=== PATIENT | male | born 1950 | race Caucasian/White ===

== ENCOUNTER → 2018-04-04 09:23 | Outpatient (CLI) | payer MEDICARE, OTHER, SELFPAY ==
[2018-04-04 12:30] LABS: Cholesterol 175 mg/dL (140-199); HDL Cholesterol 52 mg/dL (40-60); LDL Cholesterol Calculated 107 mg/dL (<100); Triglycerides 80 mg/dL (35-150)
== END ==
PROVIDERS: Visit Provider Physician Assistant
DX: E78.2 Mixed hyperlipidemia (principal)
CPT/HCPCS: 36415; 80061

== ENCOUNTER → 2019-02-25 11:27 | Outpatient (CLI) | payer MEDICARE, OTHER, SELFPAY ==
--- NOTE | 2019-02-25 | DI.RAD.S_ITS ---
PROCEDURE: XR LUMBAR SPINE 2-3V INDICATIONS: Low back pain TECHNIQUE: 3 views of the lumbar spine were acquired. COMPARISON: None. FINDINGS: Bones: 5 [id number] vertebrae are present. There is normal bony alignment. No vertebral body compression fractures. No suspicious bony lesions. There is severe L4-L5 disc degeneration. Severe facet arthropathy at L5-S1. Soft tissues: Overlying bowel gas pattern is normal. No suspicious soft tissue calcifications. IMPRESSION: Severe degenerative disc and facet disease in lumbar spine as described. Dictated by: Nael Mcdaniel M.D. on 02/25/2019 at 17:40 Approved by: Nael Mcdaniel M.D. on 02/25/2019 at 17:41
== END ==
PROVIDERS: PCP Physician Assistant; Visit Provider Physician Assistant
DX: M54.5 Low back pain (principal); M51.36 Other intervertebral disc degeneration, lumbar region; M47.816 Spondylosis without myelopathy or radiculopathy, lumbar region; G47.33 Obstructive sleep apnea (adult) (pediatric); G47.19 Other hypersomnia; Z99.89 Dependence on other enabling machines and devices
CPT/HCPCS: 72100; 99214

== ENCOUNTER → 2019-02-26 08:21 | Outpatient (CLI) | payer MEDICARE, OTHER, SELFPAY ==
[2019-02-26 09:19] LABS: Add Manual Diff / Slide Review NO; Basophils Absolute Auto 0 /uL (0-100); Basophils Percent Auto 0.8 % (0-2); Eosinophils Absolute Auto 200 /uL (0-450); Eosinophils Percent Auto 5.2 % (2-4); Hematocrit 42.4 % (41-53); Hemoglobin 14.7 g/dL (13.5-17.5); Lymphocytes Absolute Auto 1300 /uL (1100-4500); Lymphocytes Percent Auto 29.2 % (25-40); Mean Corpuscular HGB Conc 34.6 % (30-36); Mean Corpuscular Hemoglobin 31.5 PG (26-34); Monocytes Absolute Auto 500 /uL (0-900); Monocytes Percent Auto 10.4 % (3-14); Neutrophils Absolute Auto 2500 /uL (1500-7000); Neutrophils Percent Auto 54.4 % (50-75); Platelet Count 211 X10^3/uL (150-400); Red Blood Cell Count 4.66 X10^6/uL (4.5-5.9); Red Cell Distribution Width 12.7 % (11.6-14.8); White Blood Cell Count 4.6 X10^3/uL (4.5-11.0)
[2019-02-26 09:34] LABS: Hemoglobin A1C% w Est Avg Glu 5.2 % (4.0-6.0)
[2019-02-26 09:36] LABS: Alanine Aminotransferase 16 IU/L (21-72); Albumin 4.1 g/dL (3.5-5.0); Albumin Globulin Ratio 1.4 (1.0-2.8); Alkaline Phosphatase 87 U/L (38-126); Aspartate Aminotransferase 23 IU/L (17-59); BUN Creatinine Ratio 18.2 (6-22); Bilirubin Total 0.9 mg/dL (0.2-1.3); Blood Urea Nitrogen 20 mg/dL (9-20); Calcium 9.3 mg/dL (8.4-10.2); Carbon Dioxide 29 mmol/L (22-32); Chloride 104 mmol/L (98-107); Cholesterol 169 mg/dL (140-199); Estimated Glomerular Filt Rate > 60.0 mL/min (>60); Globulin 2.9 g/dL (1.7-4.1); Glucose 95 mg/dL (80-110); HEMOLYSIS < 15 (0-50); Potassium 4.5 mmol/L (3.4-5.1); Sodium 139 mmol/L (137-145)
[2019-02-26 09:53] LABS: HDL Cholesterol 49 mg/dL (40-60); LDL Cholesterol Calculated 107 mg/dL (<100); Triglycerides 63 mg/dL (35-150)
== END ==
PROVIDERS: PCP Physician Assistant; Visit Provider Physician Assistant
DX: I10 Essential (primary) hypertension (principal); G62.89 Other specified polyneuropathies; E78.2 Mixed hyperlipidemia; Z13.1 Encounter for screening for diabetes mellitus
CPT/HCPCS: 36415; 80053; 80061; 83036; 84153; 85025

== ENCOUNTER → 2019-03-03 08:21 | Outpatient (CLI) | payer MEDICARE, OTHER, SELFPAY ==
[2019-05-30 11:56] LABS: Prostate Specific Antigen 0.645 ng/mL (0.10-4.00)
== END ==
PROVIDERS: PCP Physician Assistant; Visit Provider Urology
DX: R97.20 Elevated prostate specific antigen [PSA] (principal)
CPT/HCPCS: 84153

== ENCOUNTER → 2019-04-08 14:21 | Outpatient (CLI) | payer MEDICARE, OTHER, SELFPAY ==
[2019-04-08 16:20] LABS: Free T4, Direct Thyroxine 0.74 ng/dL (0.78-2.19)
[2019-04-08 16:34] LABS: Thyroid Stimulating Hormone 2.67 uIU/mL (0.47-4.68)
== END ==
PROVIDERS: PCP Physician Assistant; Visit Provider Psychiatry & Neurology Psychiatry
DX: F32.9 Major depressive disorder, single episode, unspecified (principal)
CPT/HCPCS: 36415; 84439; 84443

== ENCOUNTER 2019-06-18 15:15 | Outpatient (RCR) | payer MEDICARE, OTHER, SELFPAY ==
--- NOTE | 2019-05-21 18:37 | PT.OIE ---
Current Diagnoses Dorsalgia, unspecified (05/21/19) Past Medical History (Last Updated 05/19/19 @ 18:01 by ELIJAH Montague) Antidepressant drug adverse reaction (Acute) BPH (benign prostatic hyperplasia) (Acute) CPAP (continuous positive airway pressure) dependence (Acute) Epistaxis (Acute) Excessive daytime sleepiness (Chronic) Obstructive sleep apnea of adult (Chronic) Persistent depressive disorder (Acute) Primary insomnia (Chronic) Restless leg syndrome (Acute) Past Surgical History (Last Updated 05/19/19 @ 18:01 by ELIJAH Montague) H/O eye surgery (Acute) Hx of tonsillectomy (Acute) Visit Care Team Role Provider Type ELIJAH Montague Attending Provider Advanced Marine Surveyor Primary Care Provider Specialty: Family Practice Address: [address] [place] [address], [facility] Email: [email or web address] Physical Therapy Initial Evaluation PT-OP-A Visit Information Start: 05/21/19 17:20 Freq: Status: Active Protocol: Document 05/21/19 16:46 (Rec: 05/21/19 17:31 [email or web address]) Out-Patient Physical Therapy Visit Information Visit Information Visit Type Initial Evaluation Visit Start Time 16:45 Visit Stop Time 17:20 Total Visit Minutes 35 Visit Number 08/24 Number of STEREOPTIC PROJECTION TOPOGRAPHER Visits 0 Evaluation Information Evaluation Date 05/21/19 PT-OP-B Current Condition Start: 05/21/19 17:20 Freq: Status: Active Protocol: Document 05/21/19 16:46 (Rec: 05/21/19 17:31 [email or web address]) Current Condition History of Current Condition Onset Date 05/21/19 Current Complaints R LBP, difficulty in prolonged standing, walking and heavy lifting History of Current Condition Pt is a 68 yo male who presents to clinic with c/o R LBP since 2 months ago. Pt fell down on his R pelvis during a hike who had immediate sharp pain afterwards. Pt then had difficulty moving his trunk and hip. He was taking ibuprofen 300mg 3 to 4 times a day for pain management until last week. Pt's pain has gotten better significantly since injury but it usually gets worse with prolonged standing/ walking (>2 hours) / heavy lifting. It also limits him from doing house work and yard work which requires him to bend over. Treatment Goals Patient/Caregiver Goals 1. To be pain free for standing , walking and lifting Prior Functional Status Baseline Function- ADL's Independent Baseline Function- Mobility Independent Current Functional Impairments (Reported) Functional Limitations- Mobility/Gait pain with walking >2 hours Functional Limitations- Other unable to bend over at counter / gardening due to increased bakc pain. Personal Factors Other Personal Factors That May Effect Pt has depression. Therapy/Recovery PT-OP-C Subjective Start: 05/21/19 17:20 Freq: Status: Active Protocol: Document 05/21/19 16:46 (Rec: 05/21/19 17:31 [email or web address]) OP-PT Subjective Patient Comments Patient Comments My pain is only like 1-2/10 right now. But certain movements/ activities do make it worse. Patient Questionnaires Oswestry Low Back Index Oswestry Score 10 Oswestry Impairment 1 to 19% Impaired (Score 1-19) OP-PT Pain Assessment Location R PSIS Intensity 2 Scale Used Numeric (1 - 10) Description Pinching,Pressure Frequency Occasional Pain Aggravating Factors Position,Exercise,Standing, Walking,Lifting Pain Alleviating Factors Inactivity,Lying Supine PT-OP-J Posture/Palpation/Skin Start: 05/21/19 17:20 Freq: Status: Active Protocol: Document 05/21/19 16:46 (Rec: 05/21/19 17:31 [email or web address]) Posture Evaluation Position Standing Evaluation View Posterior T-Spine Posture Increased Kyphosis Thorax Posture (L) Elevated L-Spine Posture Rotation Left,Shifted Right Shoulder Posture (L) Elevated Weight Distribution Weight Shifted Right PT-OP-K Range of Motion Start: 05/21/19 17:20 Freq: Status: Active Protocol: Document 05/21/19 16:46 (Rec: 05/21/19 17:31 [email or web address]) Lumbar Spine Range of Motion Lumbar Spine Active Percentage Testing Position Standing Flexion 80 Extension 100 Rotation Left 50 Rotation Right 50 Lateral Flexion Left 60 Lateral Flexion Right 70 ROM Limitations Pain Comments sharp pain with lateral flexion to R > rotation to R with R lateral flexion PT-OP-L Special Tests Start: 05/21/19 17:20 Freq: Status: Active Protocol: Document 05/21/19 16:46 (Rec: 05/21/19 18:34 [email or web address]) Special Tests Lumbar Spine Special Tests facet syndrome Test Results +VE on R Comments pain reproduced with R lateral flexon/ lateral flexion and rotation to R PT-OP-Q Treatments Start: 05/21/19 17:20 Freq: Status: Active Protocol: Document 05/21/19 16:46 (Rec: 05/21/19 18:34 [email or web address]) Therapeutic Exercises Standing Exercises QL stretch Standing Exercise Name R QL only Side right Comments lateral flexion to L Manual Therapy Treatment Joint Mobilizations R SIJ distraction Joint R SIJ Grade II Body Position Sidelying Reps/Duration 10 secsx 5 PT-OP-T Assessment and Plan Start: 05/21/19 17:20 Freq: Status: Active Protocol: Document 05/21/19 16:46 (Rec: 05/21/19 18:34 [email or web address]) Physical Therapy Assessment Rehab Potential Rehabilitation Potential Excellent Evaluation Complexity Number of Personal Factors/Comorbidities 0 Number of Body Systems Impaired 1-2 Clinical Presentation at Evaluation Stable Impairments Impairments Activity Tolerance,Functional Activities,Functional Mobility ,Pain,Posture,ROM,Soft Tissue Mobility Goals special test Impairment Pt has pain during lateral flexion to R and rotation with lateral flexion R Longterm Goal (LTG) Pt will have no pain during facet syndrome test. LTG Duration 6 weeks Activity tolerance Impairment Pt has increase pain for standing or walking > 2 hours or heavy lifting Longterm Goal (LTG) Pt will have no pain for standing/ walking/ heavy lifting. LTG Duration 6 weeks Oswestry LBP questionnaire Impairment Pt scores 10 for qswestry LBP questionnaire Longterm Goal (LTG) Pt will score <5 for Oswestry LBP questionnaire to improve her quality of life. LTG Duration 6 weeks Assessment Summary Assessment Pt is a low complexity with subacute R SIJ pain since 2 months ago. His mechanism of injury (fell on his R hip) indicates possible upslip on R pelvis girdle. His current pain has improved significantly with ibuprofen. Upon assessment, pt experienced sharp pain at R SIJ region during R lateral flexion and R rotation with R lateral flexion. Pt presents lateral flexed to R posture which mechanically increased pressure on R vertebral facet joints. Performed R SIJ distraction and L lateral flexion stretch for QL on pt who reports reduced pain during retest for R lateral flexion. Given HEP with SIJ stretch and SB stretch. Pt will benefit from skilled therapy for postural methodist, improving R lateral line flexibility, SIJ mobility and overall strengthening. Physical Therapy Plan Frequency and Duration Frequency of Treatment 1x/Week Duration of Treatment 6 weeks Plan of Care Start Date 05/21/19 Plan of Care End Date 07/05/19 Therapeutic Interventions Therapeutic Interventions Gait Training,Home Exercise Program,Joint Mobilizations, Manual Therapy,Neuromuscular Re-education,Patient/Caregiver Education,Self-Care/Home Management,Soft Tissue Mobilization,Taping, Therapeutic Activities, Therapeutic Exercises Modalities Cold Pack/Ice Massage,Electric Stimulation,Hot Packs, Infrared Therapy,Traction- Mechanical,Ultrasound Next Visit Focus/Plan Next Note Type Treatment Note Next Visit Plan review SIJ stretch and QL lateral flexion to L stretch postural education improve R SIJ mobility b hip stability training.
--- NOTE | 2019-05-29 17:50 | PT.OTN ---
Current Diagnoses Dorsalgia, unspecified (05/29/19) Physical Therapy Treatment Note PT-OP-A Visit Information Start: 05/21/19 17:20 Freq: Status: Active Protocol: Document 05/29/19 15:20 (Rec: 05/29/19 16:08 [id number]) Out-Patient Physical Therapy Visit Information Visit Information Visit Type Treatment Note Visit Start Time 15:20 Visit Stop Time 16:02 Total Visit Minutes 42 Visit Number 09/24 Number of MUD ANALYSIS WELL LOGGING OPERATOR Visits 0 PT-OP-B Current Condition Start: 05/21/19 17:20 Freq: Status: Active Protocol: Document 05/21/19 16:46 HH (Rec: 05/21/19 17:31 [email or web address]) Current Condition History of Current Condition Onset Date 05/21/19 Current Complaints R LBP, difficulty in prolonged standing, walking and heavy lifting History of Current Condition Pt is a 68 yo male who presents to clinic with c/o R LBP since 2 months ago. Pt fell down on his R pelvis during a hike who had immediate sharp pain afterwards. Pt then had difficulty moving his trunk and hip. He was taking ibuprofen 300mg 3 to 4 times a day for pain management until last week. Pt's pain has gotten better significantly since injury but it usually gets worse with prolonged standing/ walking (>2 hours) / heavy lifting. It also limits him from doing house work and yard work which requires him to bend over. Treatment Goals Patient/Caregiver Goals 1. To be pain free for standing , walking and lifting Prior Functional Status Baseline Function- ADL's Independent Baseline Function- Mobility Independent Current Functional Impairments (Reported) Functional Limitations- Mobility/Gait pain with walking >2 hours Functional Limitations- Other unable to bend over at counter / gardening due to increased bakc pain. Personal Factors Other Personal Factors That May Effect Pt has depression. Therapy/Recovery PT-OP-C Subjective Start: 05/21/19 17:20 Freq: Status: Active Protocol: Document 05/29/19 15:20 HH (Rec: 05/29/19 16:08 [id number]) OP-PT Subjective Patient Comments Patient Comments My pain has gotten a lot better with the exercises from the evaluation. I could move and walk better without limitation. Patient Reported Progress Improving PT-OP-J Posture/Palpation/Skin Start: 05/21/19 17:20 Freq: Status: Active Protocol: Document 05/21/19 16:46 (Rec: 05/21/19 17:31 [email or web address]) Posture Evaluation Position Standing Evaluation View Posterior T-Spine Posture Increased Kyphosis Thorax Posture (L) Elevated L-Spine Posture Rotation Left,Shifted Right Shoulder Posture (L) Elevated Weight Distribution Weight Shifted Right PT-OP-K Range of Motion Start: 05/21/19 17:20 Freq: Status: Active Protocol: Document 05/21/19 16:46 (Rec: 05/21/19 17:31 [email or web address]) Lumbar Spine Range of Motion Lumbar Spine Active Percentage Testing Position Standing Flexion 80 Extension 100 Rotation Left 50 Rotation Right 50 Lateral Flexion Left 60 Lateral Flexion Right 70 ROM Limitations Pain Comments sharp pain with lateral flexion to R > rotation to R with R lateral flexion PT-OP-L Special Tests Start: 05/21/19 17:20 Freq: Status: Active Protocol: Document 05/21/19 16:46 (Rec: 05/21/19 18:34 [email or web address]) Special Tests Lumbar Spine Special Tests facet syndrome Test Results +VE on R Comments pain reproduced with R lateral flexon/ lateral flexion and rotation to R PT-OP-Q Treatments Start: 05/21/19 17:20 Freq: Status: Active Protocol: Document 05/29/19 15:20 HH (Rec: 05/29/19 16:08 [id number]) Therapeutic Exercises Supine Exercises LTR Side bilateral Reps/Minutes 3 min Comments cuing for ADIM Standing Exercises Berto curl Equipment Used 2x5 lb dumbbell Reps/Minutes 10 min Comments cuing for segmental movement Other Exercises Cat/cow Reps/Minutes 5 mins Comments thoracic focus f/b full spine Lumbar lock Side bilateral Reps/Minutes x10 Child's pose Reps/Minutes 5 mins Comments R/L/central coordinated with breath Manual Therapy Treatment Joint Mobilizations SL distraction Grade III Body Position Sidelying Reps/Duration 8 x 3 Comments with R arm abduction R hip joint mob Direction inferior Grade III Body Position Supine Reps/Duration 10 secx 5 R SIJ distraction Joint R SIJ Grade II Body Position Sidelying Reps/Duration 10 secsx 5 PT-OP-T Assessment and Plan Start: 05/21/19 17:20 Freq: Status: Active Protocol: Document 05/29/19 15:20 HH (Rec: 05/29/19 16:08 [id number]) Physical Therapy Assessment Goals special test Impairment Pt has pain during lateral flexion to R and rotation with lateral flexion R Publications Inspector Goal (LTG) Pt will have no pain during facet syndrome test. LTG Duration 6 weeks Activity tolerance Impairment Pt has increase pain for standing or walking > 2 hours or heavy lifting Intermediate Goal (LTG) Pt will have no pain for standing/ walking/ heavy lifting. LTG Duration 6 weeks Oswestry LBP questionnaire Impairment Pt scores 10 for qswestry LBP questionnaire Publications Inspector Goal (LTG) Pt will score <5 for Oswestry LBP questionnaire to improve her quality of life. LTG Duration 6 weeks Assessment Summary Assessment Pt demonstrates improved trunk extension and R SB range without sx reproduction. Improved standing posture with reduced R trunk shift. Pt able to complete segmental movement ex with good body awareness and reports further improvement in sx after MT and ther ex. HEP upgraded to include shu pose, cat/cow, and berto curl to promote segmental movement. Physical Therapy Plan Next Visit Focus/Plan Next Note Type Treatment Note Next Visit Plan review SIJ stretch and QL lateral flexion to L stretch postural education improve R SIJ mobility b hip stability training.
--- NOTE | 2019-06-03 16:05 | PT.OTN ---
Current Diagnoses Dorsalgia, unspecified (06/03/19) Physical Therapy Treatment Note PT-OP-A Visit Information Start: 05/21/19 17:20 Freq: Status: Active Protocol: Document 06/03/19 15:15 HH (Rec: 06/03/19 16:03 [id number]) Out-Patient Physical Therapy Visit Information Visit Information Visit Type Treatment Note Visit Start Time 15:15 Visit Stop Time 15:59 Total Visit Minutes 44 Visit Number 10/22 Number of BEHAVIORIST Visits 0 PT-OP-B Current Condition Start: 05/21/19 17:20 Freq: Status: Active Protocol: Document 05/21/19 16:46 HH (Rec: 05/21/19 17:31 [email or web address]) Current Condition History of Current Condition Onset Date 05/21/19 Current Complaints R LBP, difficulty in prolonged standing, walking and heavy lifting History of Current Condition Pt is a 68 yo male who presents to clinic with c/o R LBP since 2 months ago. Pt fell down on his R pelvis during a hike who had immediate sharp pain afterwards. Pt then had difficulty moving his trunk and hip. He was taking ibuprofen 300mg 3 to 4 times a day for pain management until last week. Pt's pain has gotten better significantly since injury but it usually gets worse with prolonged standing/ walking (>2 hours) / heavy lifting. It also limits him from doing house work and yard work which requires him to bend over. Treatment Goals Patient/Caregiver Goals 1. To be pain free for standing , walking and lifting Prior Functional Status Baseline Function- ADL's Independent Baseline Function- Mobility Independent Current Functional Impairments (Reported) Functional Limitations- Mobility/Gait pain with walking >2 hours Functional Limitations- Other unable to bend over at counter / gardening due to increased bakc pain. Personal Factors Other Personal Factors That May Effect Pt has depression. Therapy/Recovery PT-OP-C Subjective Start: 05/21/19 17:20 Freq: Status: Active Protocol: Document 06/03/19 15:15 HH (Rec: 06/03/19 16:03 [id number]) OP-PT Subjective Patient Comments Patient Comments Im walking good now without discomfort. I did a 4mile hike the other day. But doing door stretch and sidelying stretch hurts me sometimes. Patient Reported Progress Improving PT-OP-J Posture/Palpation/Skin Start: 05/21/19 17:20 Freq: Status: Active Protocol: Document 05/21/19 16:46 (Rec: 05/21/19 17:31 [email or web address]) Posture Evaluation Position Standing Evaluation View Posterior T-Spine Posture Increased Kyphosis Thorax Posture (L) Elevated L-Spine Posture Rotation Left,Shifted Right Shoulder Posture (L) Elevated Weight Distribution Weight Shifted Right PT-OP-K Range of Motion Start: 05/21/19 17:20 Freq: Status: Active Protocol: Document 05/21/19 16:46 (Rec: 05/21/19 17:31 [email or web address]) Lumbar Spine Range of Motion Lumbar Spine Active Percentage Testing Position Standing Flexion 80 Extension 100 Rotation Left 50 Rotation Right 50 Lateral Flexion Left 60 Lateral Flexion Right 70 ROM Limitations Pain Comments sharp pain with lateral flexion to R > rotation to R with R lateral flexion PT-OP-L Special Tests Start: 05/21/19 17:20 Freq: Status: Active Protocol: Document 05/21/19 16:46 (Rec: 05/21/19 18:34 [email or web address]) Special Tests Lumbar Spine Special Tests facet syndrome Test Results +VE on R Comments pain reproduced with R lateral flexon/ lateral flexion and rotation to R PT-OP-Q Treatments Start: 05/21/19 17:20 Freq: Status: Active Protocol: Document 06/03/19 15:15 HH (Rec: 06/03/19 16:03 [id number]) Therapeutic Exercises Supine Exercises piriformis stretch Supine Exercise Name knee to opposite shoulder Reps/Minutes 10 secx 5 LTR Side bilateral Reps/Minutes 3 min Comments cuing for ADIM Sidelying Exercises MET for L/S rotatoin Sidelying Exercise Name MET Side right Reps/Minutes 5secs Comments contract- relax R hip hike MET Sidelying Exercise Name MET Side right Reps/Minutes 5 secs Comments contract- relax Standing Exercises tennis ball release Standing Exercise Name at gluteal / piriformis Side right Comments for HEP hip hinge Side bilateral Reps/Minutes 4 mins Comments cues on neutral spine with knees bent trunk rotation Side bilateral Reps/Minutes 8 x 2 Comments standing gross rotatoin Berto curl Standing Exercise Name fwd, bwd and sideways Equipment Used 2x5 lb dumbbell Reps/Minutes 10 min Comments cuing for segmental movement Other Exercises Cat/cow Reps/Minutes 5 mins Comments thoracic focus f/b full spine Manual Therapy Treatment Joint Mobilizations SL distraction Grade III Body Position Sidelying Reps/Duration 8 x 3 Comments with R arm abduction R SIJ distraction Joint R SIJ Grade II Body Position Sidelying Reps/Duration 10 secsx 5 PT-OP-T Assessment and Plan Start: 05/21/19 17:20 Freq: Status: Active Protocol: Document 06/03/19 15:15 (Rec: 06/03/19 16:03 [id number]) Physical Therapy Assessment Goals special test Impairment Pt has pain during lateral flexion to R and rotation with lateral flexion R Services Account Manager Goal (LTG) Pt will have no pain during facet syndrome test. LTG Duration 6 weeks Activity tolerance Impairment Pt has increase pain for standing or walking > 2 hours or heavy lifting Skilled Nursing Goal (LTG) Pt will have no pain for standing/ walking/ heavy lifting. LTG Duration 6 weeks Oswestry LBP questionnaire Impairment Pt scores 10 for qswestry LBP questionnaire Services Account Manager Goal (LTG) Pt will score <5 for Oswestry LBP questionnaire to improve her quality of life. LTG Duration 6 weeks Assessment Summary Assessment Pt does not have sx with walking, hiking, standing etc except doing HEP and lifting. Pt needed education on stretching pain vs actual pain . Added hip hinge ex and tennis ball release. Next appt 06/18, might consider d/c depends on pt's progress. Physical Therapy Plan Next Visit Focus/Plan Next Note Type Treatment Note Next Visit Plan review HEP review SIJ stretch and QL lateral flexion to L stretch postural education improve R SIJ mobility b hip stability training.
--- NOTE | 2019-06-18 16:01 | PT.OTN ---
Current Diagnoses Dorsalgia, unspecified (06/18/19) Physical Therapy Treatment Note PT-OP-A Visit Information Start: 05/21/19 17:20 Freq: Status: Active Protocol: Document 06/18/19 15:18 (Rec: 06/18/19 16:01 [id number]) Out-Patient Physical Therapy Visit Information Visit Information Visit Type Treatment Note Visit Note SPT Leda led tx session. Last visit = 06/03 Visit Start Time 15:18 Visit Stop Time 16:01 Total Visit Minutes 44 Visit Number 11/22 Number of SENIOR PROCESS CONTROL TECH Visits 0 PT-OP-B Current Condition Start: 05/21/19 17:20 Freq: Status: Active Protocol: Document 05/21/19 16:46 HH (Rec: 05/21/19 17:31 [email or web address]) Current Condition History of Current Condition Onset Date 05/21/19 Current Complaints R LBP, difficulty in prolonged standing, walking and heavy lifting History of Current Condition Pt is a 68 yo male who presents to clinic with c/o R LBP since 2 months ago. Pt fell down on his R pelvis during a hike who had immediate sharp pain afterwards. Pt then had difficulty moving his trunk and hip. He was taking ibuprofen 300mg 3 to 4 times a day for pain management until last week. Pt's pain has gotten better significantly since injury but it usually gets worse with prolonged standing/ walking (>2 hours) / heavy lifting. It also limits him from doing house work and yard work which requires him to bend over. Treatment Goals Patient/Caregiver Goals 1. To be pain free for standing , walking and lifting Prior Functional Status Baseline Function- ADL's Independent Baseline Function- Mobility Independent Current Functional Impairments (Reported) Functional Limitations- Mobility/Gait pain with walking >2 hours Functional Limitations- Other unable to bend over at counter / gardening due to increased bakc pain. Personal Factors Other Personal Factors That May Effect Pt has depression. Therapy/Recovery PT-OP-C Subjective Start: 05/21/19 17:20 Freq: Status: Active Protocol: Document 06/18/19 15:18 HH (Rec: 06/18/19 16:01 [id number]) OP-PT Subjective Patient Comments Patient Comments Walking and standing for a long time still bothers me back sometimes. Doing home exercises does help my symptoms but i didnt do enough . Patient Reported Progress Improving PT-OP-J Posture/Palpation/Skin Start: 05/21/19 17:20 Freq: Status: Active Protocol: Document 05/21/19 16:46 (Rec: 05/21/19 17:31 [email or web address]) Posture Evaluation Position Standing Evaluation View Posterior T-Spine Posture Increased Kyphosis Thorax Posture (L) Elevated L-Spine Posture Rotation Left,Shifted Right Shoulder Posture (L) Elevated Weight Distribution Weight Shifted Right PT-OP-K Range of Motion Start: 05/21/19 17:20 Freq: Status: Active Protocol: Document 05/21/19 16:46 (Rec: 05/21/19 17:31 [email or web address]) Lumbar Spine Range of Motion Lumbar Spine Active Percentage Testing Position Standing Flexion 80 Extension 100 Rotation Left 50 Rotation Right 50 Lateral Flexion Left 60 Lateral Flexion Right 70 ROM Limitations Pain Comments sharp pain with lateral flexion to R > rotation to R with R lateral flexion PT-OP-L Special Tests Start: 05/21/19 17:20 Freq: Status: Active Protocol: Document 05/21/19 16:46 (Rec: 05/21/19 18:34 [email or web address]) Special Tests Lumbar Spine Special Tests facet syndrome Test Results +VE on R Comments pain reproduced with R lateral flexon/ lateral flexion and rotation to R PT-OP-Q Treatments Start: 05/21/19 17:20 Freq: Status: Active Protocol: Document 06/18/19 15:18 (Rec: 06/18/19 16:01 [id number]) Therapeutic Exercises Prone Exercises prone cat camel with SB Prone Exercise Name isolated SB for L/S Reps/Minutes 5 x4 Comments need cues to avoid lateral weight shift Sitting Exercises QL stretch Sitting Exercise Name trunk SB to L Side right Standing Exercises tennis ball release Standing Exercise Name at gluteal / piriformis Side right Comments for HEP Berto curl Standing Exercise Name fwd, bwd and sideways Equipment Used 2x5 lb dumbbell Reps/Minutes 10 min Comments cuing for segmental movement Other Exercises Cat/cow Reps/Minutes 5 mins Comments thoracic focus f/b full spine Child's pose Reps/Minutes 5 mins Comments R/L/central coordinated with breath Manual Therapy Treatment Joint Mobilizations SL distraction Grade III Body Position Sidelying Reps/Duration 8 x 3 Comments with R arm abduction R hip joint mob Direction inferior Grade III Body Position Supine Reps/Duration 10 secx 5 R SIJ distraction Joint R SIJ Grade II Body Position Sidelying Reps/Duration 10 secsx 5 PT-OP-T Assessment and Plan Start: 05/21/19 17:20 Freq: Status: Active Protocol: Document 06/18/19 15:18 (Rec: 06/18/19 16:01 [id number]) Physical Therapy Assessment Goals special test Impairment Pt has pain during lateral flexion to R and rotation with lateral flexion R Resident Physician In Radiology Goal (LTG) 06/18 pt has pinching pain with end range lateral flexion to R but decreased after repeated motion/ after stretch . LTG Duration 6 weeks Activity tolerance Impairment Pt has increase pain for standing or walking > 2 hours or heavy lifting Custodial Goal (LTG) 06/18 Pt cont to improve without significant increase in pain, except prolonged walking and standing. LTG Duration 6 weeks Oswestry LBP questionnaire Impairment Pt scores 10 for qswestry LBP questionnaire Resident Physician In Radiology Goal (LTG) Pt will score <5 for Oswestry LBP questionnaire to improve her quality of life. LTG Duration 6 weeks Assessment Summary Assessment Pt has not been seen since . He does report his pain persists after prolonged standing/ walking but able to manage by stretching/ doing HEP. He only took 1 advil once for the past 2 weeks. Pt's pain goes away with repeated motion/ after SIJ mob/ distraction. Reviewed HEP with him today and did QL stretch modification in seated position Physical Therapy Plan Discharge Physical Therapy Discharge Reasons Patient Request
== END 2019-06-18 16:15 ==
LOC: PHYS 15:15
PROVIDERS: PCP Nurse Practitioner; Visit Provider Nurse Practitioner
DX: M54.9 Dorsalgia, unspecified (principal)
CPT/HCPCS: 97110; 97140; 97161

== ENCOUNTER → 2020-03-01 12:10 | Outpatient (CLI) | payer MEDICARE, OTHER, SELFPAY ==
[2020-03-01 13:19] LABS: Alanine Aminotransferase 23 IU/L (<50); Albumin 4.4 g/dL (3.5-5.0); Albumin Globulin Ratio 1.5 (1.0-2.8); Alkaline Phosphatase 91 U/L (38-126); Aspartate Aminotransferase 34 IU/L (17-59); BUN Creatinine Ratio 13.4 (6-22); Bilirubin Total 0.8 mg/dL (0.2-1.3); Blood Urea Nitrogen 15 mg/dL (9-20); Calcium 9.2 mg/dL (8.4-10.2); Carbon Dioxide 27 mmol/L (22-32); Chloride 107 mmol/L (98-107); Estimated Glomerular Filt Rate > 60.0 mL/min (>60); Globulin 2.9 g/dL (1.7-4.1); Glucose 87 mg/dL (80-110); HEMOLYSIS < 15 (0-50); Sodium 138 mmol/L (137-145); Total Protein 7.3 g/dL (6.3-8.2)
[2020-03-01 13:32] LABS: Free T3, Triiodothyronine Free 3.05 pg/mL (2.77-5.27); Free T4, Direct Thyroxine 0.78 ng/dL (0.78-2.19)
[2020-03-01 13:45] LABS: Prostate Specific Antigen 1.04 ng/mL (0.10-4.00)
== END ==
PROVIDERS: PCP Nurse Practitioner; Referring Provider Specialist; Visit Provider Specialist
DX: E03.9 Hypothyroidism, unspecified (principal); F32.9 Major depressive disorder, single episode, unspecified; I10 Essential (primary) hypertension; Z79.899 Other long term (current) drug therapy; N13.8 Other obstructive and reflux uropathy; N40.1 Benign prostatic hyperplasia with lower urinary tract symptoms
CPT/HCPCS: 36415; 80053; 84153; 84439; 84443; 84481

== ENCOUNTER → 2020-08-31 15:22 | Outpatient (CLI) | payer MEDICARE, OTHER, SELFPAY ==
[2020-08-31] MEDS: COVID-19 VACC #1, MRNA(MOD) 100 MCG/0.5 ML VIAL IM (15:29)
== END ==
PROVIDERS: PCP Nurse Practitioner; Visit Provider Internal Medicine
DX: Z23 Encounter for immunization (principal)
CPT/HCPCS: 0011A; 91301

== ENCOUNTER → 2020-09-28 15:23 | Outpatient (CLI) | payer MEDICARE, OTHER, SELFPAY ==
[2020-09-28] MEDS: COVID-19 VACC #2, MRNA(MOD) 100 MCG/0.5 ML VIAL IM (15:29)
== END ==
PROVIDERS: PCP Nurse Practitioner; Visit Provider Internal Medicine
DX: Z23 Encounter for immunization (principal)
CPT/HCPCS: 0012A; 91301

== ENCOUNTER → 2021-04-18 08:22 | Outpatient (CLI) | payer MEDICARE, OTHER, SELFPAY ==
[2021-04-18 09:33] LABS: Alanine Aminotransferase 28 IU/L (<50); Albumin 4.3 g/dL (3.5-5.0); Albumin Globulin Ratio 1.5 (1.0-2.8); Alkaline Phosphatase 80 U/L (38-126); Aspartate Aminotransferase 38 IU/L (17-59); BUN Creatinine Ratio 16.8 (6-22); Bilirubin Total 0.4 mg/dL (0.2-1.3); Blood Urea Nitrogen 20 mg/dL (9-20); Carbon Dioxide 29 mmol/L (22-32); Chloride 105 mmol/L (98-107); Estimated Glomerular Filt Rate > 60.0 mL/min (>60); Globulin 2.9 g/dL (1.7-4.1); Glucose 104 mg/dL (80-110); HEMOLYSIS 15 (0-50); Potassium 4.9 mmol/L (3.4-5.1); Sodium 139 mmol/L (137-145); Total Protein 7.2 g/dL (6.3-8.2)
[2021-04-18 09:49] LABS: Free T3, Triiodothyronine Free 3.84 pg/mL (2.77-5.27)
[2021-04-18 10:02] LABS: Thyroid Stimulating Hormone 2.07 uIU/mL (0.47-4.68)
[2021-04-18 18:40] LABS: Hep C Virus Ab w/Reflex Quant NEGATIVE s/c (NEGATIVE)
[2021-04-19 11:42] LABS: Fecal Immunochemical Test Negative (Negative)
== END ==
PROVIDERS: PCP Nurse Practitioner; Referring Provider Nurse Practitioner; Visit Provider Nurse Practitioner
DX: F34.1 Dysthymic disorder (principal); I10 Essential (primary) hypertension; F51.01 Primary insomnia; Z79.899 Other long term (current) drug therapy; Z11.59 Encounter for screening for other viral diseases; Z91.89 Other specified personal risk factors, not elsewhere classified
CPT/HCPCS: 36415; 80053; 82274; 84439; 84443; 84481; 86803

== ENCOUNTER → 2021-04-22 10:20 | Outpatient (CLI) | payer MEDICARE, OTHER, SELFPAY ==
[2021-04-22 10:41] LABS: COVID19 -Nasal RAPID Negative (Negative)
== END ==
PROVIDERS: PCP Nurse Practitioner; Visit Provider Surgery
DX: Z01.812 Encounter for preprocedural laboratory examination (principal); Z20.822 Contact with and (suspected) exposure to COVID-19
CPT/HCPCS: 87635; C9803

== ENCOUNTER 2021-04-25 09:17 | Day surgery (SDC) | payer MEDICARE, OTHER, SELFPAY ==
[2021-04-25] VITALS (8 sets, daily range): BP systolic 123–149; BP diastolic 73–78; PULSE 54–67; RESP 10–20; TEMP 36.6–37; O2SAT 94–996; BMI 23.1
[2021-04-25] MEDS: LACTATED RINGERS 1,000 ML 150 ML IV (09:43)
--- NOTE | 2021-04-25 10:15 | PM.HP.1 ---
History of Present Illness History of Present Illness Date Patient Seen: 04/25/21 Time Patient Seen: 10:15 Chief complaint: SCREENING COLONOSCOPY Narrative: The patient presents for colorectal sreening. He has never had a colonoscopy before. He did have a sigmoidoscopy years ago approximately 10 which was significant for benign polyps. No personal or family history of colon cancer. On further history denies any recent gastrointestinal symptoms. No nausea, vomiting, abdominal pain, loss of appetite, unexplained weight loss, change in bowel habits, diarrhea, constipation, melena, hematochezia, or bright red blood per rectum. Patient History Medical History Antidepressant drug adverse reaction Back pain BPH (benign prostatic hyperplasia) BPH w urinary obs/LUTS CPAP (continuous positive airway pressure) dependence Epistaxis Erectile dysfunction Excessive daytime sleepiness Foot pain (~2008) Hypertension Left varicocele Measles (~1956) Mumps (~1957) Neuropathy, peripheral Numbness and tingling of both feet Numbness in feet Obstructive sleep apnea of adult (~2003) Primary insomnia Restless leg syndrome Right inguinal hernia Surgical History H/O eye surgery (~2003) Hx of tonsillectomy (~1967) Family & Social History Family History Father No problems noted. Mother Liver failure Alcoholism Sister History of knee replacement Social History: household members spouse lives independently Yes caregiver/support person No Tobacco & Substance use: Tobacco type cannabis/marijuana Smoking Status Current every day smoker alcohol intake former Substance Use Type marijuana Meds Home Medications and Allergies Home Medications Medication Instructions Recorded Confirmed Type finasteride 5 mg tablet 5 mg PO DAILY 12/10/18 04/25/21 History tadalafil 10 mg tablet (Cialis) 10 mg PO DAILY PRN 12/10/18 04/25/21 History Resmed Aircurve 10 BIPAP #1 ea 04/08/19 03/09/21 History bupropion HCl 300 mg 24 hr tablet, 300 mg PO QAM #90 tab 06/01/20 04/25/21 Rx extended release irbesartan 150 mg tablet 150 mg PO DAILY #90 tab 12/29/20 04/25/21 Rx alfuzosin 10 mg tablet,extended See Rx Instructions .ROUTE 04/04/21 04/25/21 Rx release 24 hr .COMPLEX #30 tab bupropion HCl 300 mg 24 hr tablet, 300 mg PO QAM 04/25/21 04/25/21 History extended release Allergies Allergy/AdvReac Type Severity Reaction Status Date / Time aspirin Allergy Mild nose bleeds Verified 04/25/21 09:32 chlorpheniramine Allergy Mild nosebleeds Verified 03/09/21 09:03 [From [facility]-DA] phenylephrine Allergy Mild nosebleeds Verified 03/09/21 09:03 [From Duravent-DA] scopolamine Allergy Mild nosebleeds Verified 03/09/21 09:03 [From Duravent-DA] Review of Systems Review of Systems ROS: Yes All systems reviewed with the patient and are negative except as otherwise documented Exam Vital Signs (past 8 hours): - 04/25/21 09:43 Temperature 98.6 F Pulse Rate 58 L Respiratory Rate 20 Blood Pressure 149/73 H Pulse Oximetry 100 Oxygen Delivery Method Room Air Narrative Exam Narrative: Constitutional-he is oriented to person, place and time. No apparent distress Cardiovascular- regular rate, no peripheral edema Pulmonary-unlabored respiratory effort, no audible wheezing Abdominal-soft, non-tender, non-distended Musculoskeletal-no cyanosis or clubbing Neurological-nonfocal, normal strength throughout, Skin-warm and dry Assessment & Plan Assessment & Plan narrative: The patient requires colorectal screening and colonoscopy is recommended. Technical details were discussed. Risks, benefits, alternatives explained. Risks including but not limited to myocardial infarction, aspiration, bleeding, pain, missed lesion, incomplete examination, need for further radiographic studies, colonic perforation, and need for major abdominal surgery were discussed. All questions were answered to their satisfaction, and they are in agreement with this plan. Time Spent With Patient Critical Care time: I spent a total of [] minutes of critical care time on this patient's care today; this time is exclusive of procedural time.
[2021-04-25] MEDS: MIDAZOLAM 5 MG/5 ML VIAL IV (10:32)
[2021-04-25] MEDS: fentaNYL 250 MCG/5 ML INJ IV (10:33)
--- NOTE | 2021-04-25 10:44 | PM.OP.ENDO ---
Operative Date/Time/Diagnoses Date of procedure: 04/25/21 Time of procedure: 10:44 Pre-op diagnosis: Personal history of colonic polyps Post-op diagnosis: same Procedure & Clinicians Study performed: Colonoscopy Same procedure as scheduled: Yes Indications: Personal history of colonic polyps Surgeon: Fran Loera Procedure Notes Procedure in detail: Medications: Conscious sedation using 6mg IV midazolam and 200mcg IV of fentanyl The history and physical was performed/updated and the patient is ASA class is 2. The procedure was discussed in detail with the patient. Potential risks complications including infection, bleeding, missed diagnosis, perforation, need for surgery, and were explained. Their questions were answered and informed consent was obtained. Patient was brought to the procedure room and placed standard monitoring equipment. The patient's vital signs were monitored continuously throughout the entire procedure. Prior to starting time-out was performed. The patient was placed in the left lateral recumbent position. Procedural sedation was administered. Examination began with a thorough inspection of the perianal area there was no evidence of fissures, fistulae, external hemorrhoids or cutaneous malignancy. The colonoscopy scope was then placed into the anal canal and was advanced to the cecum, which was identified by the ileocecal valve, the appendiceal orifice and the confluence of the taenia. The scope was then slowly withdrawn examining colon thoroughly in all directions, irrigating it of any residual stool. FINDINGS 1. No masses or polyps 2. Sigmoid diverticulosis The patient tolerated the procedure well. They will be discharged once criteria are met. The prep was of good/excellent quality. The withdrawl time was 7 minutes. The sedation time was 20 minutes. Specimen(s): none sent Complications: none Impression: Normal colonoscopy Post-procedure Recommendations: Colonscopy in 10 years Disposition: same day surgery
--- NOTE | 2021-04-25 11:26 | SUR.PHASEII ---
Pt transferred to phase II and report given to Lisandra
--- NOTE | 2021-04-25 12:00 | SUR.PHASEII ---
Pt ready to go, called, available for miner pick. Pt with no nausea, soft belly no pain, left in stable condition.
== END 2021-04-25 11:45 | disposition home or self-care (01) ==
PROVIDERS: PCP Nurse Practitioner; Referring Provider Surgery; Visit Provider Surgery
PROC: 0DJD8ZZ Inspection of Lower Intestinal Tract, Via Natural or Artificial Opening Endoscopic (ICD-10-PCS; CPT 45378; principal; 2021-04-25 10:00)
DX: Z12.11 Encounter for screening for malignant neoplasm of colon (principal); Z86.010 Personal history of colon polyps; K57.30 Diverticulosis of large intestine without perforation or abscess without bleeding; I10 Essential (primary) hypertension; N40.1 Benign prostatic hyperplasia with lower urinary tract symptoms; G25.81 Restless legs syndrome; G47.33 Obstructive sleep apnea (adult) (pediatric); G62.9 Polyneuropathy, unspecified
CPT/HCPCS: G0105; 99152; J2250; J3010

== ENCOUNTER → 2021-06-29 09:45 | Outpatient (CLI) | payer MEDICARE, OTHER, SELFPAY ==
[2021-06-29 12:19] LABS: Prostate Specific Antigen 0.996 ng/mL (0.10-4.00)
== END ==
PROVIDERS: PCP Nurse Practitioner; Referring Provider Specialist; Visit Provider Specialist
DX: N40.0 Benign prostatic hyperplasia without lower urinary tract symptoms (principal)
CPT/HCPCS: 36415; 84153

== ENCOUNTER → 2022-10-31 11:38 | Outpatient (CLI) | payer MEDICARE, OTHER, SELFPAY | PROVIDERS: PCP Nurse Practitioner; Referring Provider Nurse Practitioner; Visit Provider Nurse Practitioner | DX: I10 Essential (primary) hypertension (principal) | CPT/HCPCS: 93005 ==

== ENCOUNTER → 2022-11-01 07:36 | Outpatient (CLI) | payer MEDICARE, OTHER, SELFPAY ==
[2022-11-01 08:27] LABS: Alanine Aminotransferase 22 IU/L (<50); Albumin 4.1 g/dL (3.5-5.0); Albumin Globulin Ratio 1.3 (1.0-2.8); Alkaline Phosphatase 84 U/L (38-126); Aspartate Aminotransferase 27 IU/L (17-59); BUN Creatinine Ratio 12.9 (6-22); Bilirubin Total 0.5 mg/dL (0.2-1.3); Blood Urea Nitrogen 17 mg/dL (9-20); Calcium 8.8 mg/dL (8.4-10.2); Carbon Dioxide 28 mmol/L (22-32); Chloride 105 mmol/L (98-107); Cholesterol 175 mg/dL (140-199); Estimated Glomerular Filt Rate 58 mL/min (>60); Globulin 3.2 g/dL (1.7-4.1); Glucose 111 mg/dL (80-110); HDL Cholesterol 49 mg/dL (40-60); HEMOLYSIS < 15 (0-50); LDL Cholesterol Calculated 111 mg/dL (<100); Potassium 4.5 mmol/L (3.4-5.1); Sodium 138 mmol/L (137-145); Total Protein 7.3 g/dL (6.3-8.2); Triglycerides 76 mg/dL (35-150)
[2022-11-01 08:29] LABS: Creatinine Urine Random 94.9 mg/dL
[2022-11-01 08:41] LABS: Free T4, Direct Thyroxine 0.87 ng/dL (0.78-2.19)
[2022-11-01 08:43] LABS: Free T3, Triiodothyronine Free 3.24 pg/mL (2.77-5.27)
[2022-11-01 08:50] LABS: Microalbumin Urine Random < 0.6 mg/dL (0-1.6)
[2022-11-01 08:53] LABS: Prostate Specific Antigen Scrn 1.18 ng/mL (0.1-4.0)
[2022-11-01 08:55] LABS: Thyroid Stimulating Hormone 2.42 uIU/mL (0.47-4.68)
[2022-11-02 15:49] LABS: HIV 1 & 2 Ab/Ag 4th Gen Combo NEGATIVE (NEGATIVE); Hep C Virus Ab w/Reflex Quant NEGATIVE s/c (NEGATIVE)
== END ==
PROVIDERS: PCP Nurse Practitioner; Referring Provider Nurse Practitioner; Visit Provider Nurse Practitioner
DX: I10 Essential (primary) hypertension (principal); Z12.5 Encounter for screening for malignant neoplasm of prostate; Z11.59 Encounter for screening for other viral diseases; F34.1 Dysthymic disorder; F51.01 Primary insomnia; F90.9 Attention-deficit hyperactivity disorder, unspecified type; G62.9 Polyneuropathy, unspecified; Z11.4 Encounter for screening for human immunodeficiency virus [HIV]
CPT/HCPCS: 36415; 80053; 80061; 82043; 82570; 84439; 84443; 84481; 86803; 87389; G0103

== ENCOUNTER → 2022-11-09 06:46 | Outpatient (CLI) | payer MEDICARE, OTHER, SELFPAY ==
--- NOTE | 2022-11-09 06:47 | DI.CT.S_ITS ---
PROCEDURE: CT CHEST WO CON INDICATIONS: smoking history TECHNIQUE: Noncontrast 5 mm thick sections acquired from the pulmonary apices to the posterior costophrenic angles. 1 mm lung window, 5 mm thick coronal and sagittal and 7 mm axial MIP reformats were then acquired. For radiation dose reduction, the following was used: automated exposure control, adjustment of mA and/or kV according to patient size. COMPARISON: None. FINDINGS: Image quality: Excellent. Lungs and pleura: Mild emphysema. There are multiple calcified nodules bilaterally, compatible with remote granulomatous disease. 2 noncalcified nodules are seen along the right minor fissure, measuring 8 mm (series 3 image 206) and 7 mm (series 3, image 224). No acute air space opacities. No pleural effusions or pneumothorax. Central and peripheral airways are patent and normal in caliber. Mediastinum: Heart size is normal. No pericardial effusion. No mediastinal adenopathy by size criteria. Thoracic aorta and central pulmonary arteries are normal in size. Esophagus is normal in caliber. No hiatal hernia. Bones and chest wall: No suspicious bony lesions. No vertebral body compression fractures. There is a 1.2 cm right axillary lymph node lymph node. Numerous subcentimeter lymph nodes are seen in axillae bilaterally. Thyroid gland is unremarkable . Abdomen: Visualized upper abdominal solid organs and bowel loops appear normal in the absence of contrast. IMPRESSION: 1. 2 nodules are seen in right middle lobe along the minor fissure, most likely benign. Recommend a 3-6 month follow-up CT. 2. Remote granulomas bilaterally. Dictated by: Nael Mcdaniel M.D. on 11/09/2022 at 11:13 Approved by: Nael Mcdaniel M.D. on 11/09/2022 at 12:54
--- NOTE | 2022-11-09 06:47 | DI.ECHO.S_ITS ---
[facility] +---------+ : : [address] : : : : [id number] : : : : Phone: [phone]+ Echocardiogram Report + + :Name: DESTINEY RODRIGUEZ JR Study Date: 11/09/2022 Height: 72 in : :[facility] ReadingLocation: Weight: 189 lb : : Gender: Male BSA: 2.1 m2 : :: 1950 Age: 72 yrs BP: 159/89 mmHg: :Reason For Study: HYPERTENSION : :Ordering Physician: VIRAL, : :KENNY Performed By: Stacey Michael : :Referring: KENNY STRATTON : + + Interpretation Summary Normal sinus rhythm and uncontrolled blood pressure. Normal LV size and wall thickness. Normal wall motion and LV systolic function. Ejection fraction is 60-65%. No significant valvular abnormalities. Normal chamber sizes. Estimated PA systolic pressure is 35 mmHg assuming right atrial pressure of 8 mmHg. No prior study available for comparison. Procedure: A two-dimensional transthoracic echocardiogram with color flow and Doppler was performed. The study quality was technically good. There is no prior echocardiogram noted for this patient. The patient was in sinus rhythm with heart rates between 58-75 bpm during the exam. Left Ventricle: The left ventricle is normal in size and wall thickness. The ejection fraction is estimated to be 60-65%. Right Ventricle: The right ventricle is normal in size and function. Atria: The left atrial size is normal. Right atrial size is normal. There is no Doppler evidence for an interatrial shunt. Mitral Valve: The mitral valve is normal in structure and function. There is trace mitral regurgitation. Aortic Valve: The aortic valve is trileaflet. The aortic valve opens well. There is no aortic valve stenosis. There is trace aortic regurgitation. Tricuspid Valve: The tricuspid valve is normal in structure and function. There is mild tricuspid regurgitation. The right ventricular systolic pressure is estimated to be at least 35 mmHg based on an estimated right atrial pressure of 8 mm Hg. Pulmonic Valve: The pulmonic valve is not well visualized. There is trace pulmonic regurgitation. Great Vessels: The aortic root is normal size. The dimensions of the ascending aorta are normal. The IVC is of normal diameter and collapses less than 50% with a sniff. This suggests a right atrial pressure of 8 mm Hg. Pericardium/ Pleura There is no pericardial effusion. There is no pleural effusion. MMode/2D Measurements & Calculations LVIDd: 5.0 cm LVOT diam: 2.1 cm LVIDs: 3.4 cm Ao root diam: 3.4 cm FS: 32.2 % asc Aorta Diam: 3.6 cm EPSS: 0.54 cm Ao Arch Diam (Prox Trans): 2.9 cm IVSd: 0.88 cm LVPWd: 0.83 cm LV gambino. diameter/BSA (cm/m^2): 2.4 LV sys. diameter/BSA (cm/m^2): 1.6 LA A2 area: 22.2 cm2 RA long axis: 5.0 cm LA A4 area: 16.0 cm2 RA area: 16.6 cm2 LA length (vol): 5.2 cm RA vol: 46.4 ml LA vol: 57.7 ml RA : 22.3 ml/m2 LA vol index: 27.8 ml/m2 IVC diam: 2.1 cm RVD1 (basal): 3.6 cm RVD2 (mid): 3.3 cm TAPSE: 2.0 cm Doppler Measurements & Calculations Ao V2 max: 132.8 cm/sec LVOT Max Anam: 124.2 cm/sec Ao V2 mean: 100.4 cm/sec LV V1 max P.2 mmHg Ao max P.1 mmHg LV V1 VTI: 27.3 cm Ao mean P.4 mmHg DIANE(I,D): 3.2 cm2 Ao V2 VTI: 30.2 cm DIANE(V,D): 3.3 cm2 sev ratio: 0.90 DIANE indexed to BSA (cm^2/m^2): 1.5 MV E max anam: 79.9 cm/sec TR max anam: 258.6 cm/sec MV A max anam: 75.6 cm/sec TR max P.8 mmHg MV E/A: 1.1 PA V2 max: 126.4 cm/sec Med Peak E' Anam: 7.3 cm/sec PA V2 mean: 89.9 cm/sec E/E' med: 11.0 PA mean P.7 mmHg Lat Peak E' Anam: 8.5 cm/sec PA pr(Accel): 25.9 mmHg E/E' lat: 9.4 E/e' average: 10.2 MV dec time: 0.20 sec SV(LVOT): 95.2 ml Electronically signed by: Julia Morel M.D. on Reading Physician:11/09/2022 06:33 PM
--- NOTE | 2022-11-09 06:47 | DI.US.S_ITS ---
PROCEDURE: US ABD AORTA ANEURYSM SCREEN INDICATIONS: SCREENING FOR AAA TECHNIQUE: Real time scanning was performed of the aorta and iliac arteries, with image documentation. COMPARISON: None. FINDINGS: Aorta: Proximal aortic diameter measures 2.6 x 2.5 x 2.3 cm. Mid-aorta measures 2.0 x 2.0 x 1.6 cm. Distal aortic diameter is 2.1 x 1.8 x 1.8 cm. Iliac arteries: Right common iliac artery measures 1.2 x 1.1 cm. Left common iliac artery measures 1.2 x 1.2 cm. IMPRESSION: Negative for abdominal aortic aneurysm. The proximal aorta measures up to 2.6 cm, which is ectatic, consider 5 year follow-up. Dictated by: Ced Gaytan M.D. on 11/09/2022 at 9:53 Approved by: Ced Gaytan M.D. on 11/09/2022 at 9:53
== END ==
PROVIDERS: PCP Nurse Practitioner; Referring Provider Nurse Practitioner; Visit Provider Nurse Practitioner
DX: I07.1 Rheumatic tricuspid insufficiency (principal); R92.8 Other abnormal and inconclusive findings on diagnostic imaging of breast; J43.9 Emphysema, unspecified; I10 Essential (primary) hypertension; Z13.6 Encounter for screening for cardiovascular disorders; Z87.891 Personal history of nicotine dependence
CPT/HCPCS: 71250; 76706; 93306

== ENCOUNTER → 2023-02-12 08:34 | Outpatient (CLI) | payer MEDICARE, OTHER, SELFPAY ==
--- NOTE | 2023-02-12 08:35 | DI.CT.S_ITS ---
PROCEDURE: CT CHEST WO CON INDICATIONS: nodules TECHNIQUE: Noncontrast 2.0-2.5 mm thick sections acquired from the pulmonary apices to the posterior costophrenic angles. 7 mm thick axial MIP and 5 mm coronal and sagittal reformats were then acquired. A low radiation dose technique was utilized. COMPARISON: [facility], CT, CT CHEST WO CON, 11/09/2022, 7:02. FINDINGS: Image quality: Diagnostic, given the low radiation dose technique. Lungs and pleura: Stable juxtapleural nodules along the right minor fissure measuring 7-8 millimeters (series 3, image 207 and 7-8 millimeters (series 3, image 226). These have a smooth margin and are triangular in shape. Calcified granuloma are present. No suspicious pulmonary nodules. Mediastinum: Heart size is normal. No pericardial effusion. No mediastinal adenopathy by size criteria. Thoracic aorta and central pulmonary arteries are normal in size. Esophagus is normal in caliber. No hiatal hernia. Mild coronary artery calcifications for age. Bones and chest wall: No suspicious bony lesions. No vertebral body compression fractures. No axillary or supraclavicular adenopathy by size criteria. Thyroid gland is unremarkable . Abdomen: Visualized upper abdomen solid organs and bowel loops appear normal in the absence of contrast. IMPRESSION: Stable pulmonary nodules. The largest are juxtapleural, with smooth margins. Findings favor benign intrapulmonary lymph nodes. Fleischner Society criteria for SOLID lung nodule followup. Nodule size (mm)Low-risk patientHigh-risk patient<6 (single or multiple)No routine followup.Optional CT at 12 months. 6-8 (single or multiple)CT at 6-12 months, then optional CT at 18-24 mo.CT at 6-12 months, then CT at 18-24 months. >8 (single)CT at 3 months, PET-CT, or biopsy. Same as for low-risk pts. >8 (multiple)CT at 3-6 months, then optional CT at 18-24 mo.CT at 3-6 months, then CT at 18-24 months. Fleischner Society criteria for SUB-SOLID lung nodule followup. Solitary pure ground-glass nodules<6 mm (ground glass or part solid)No followup needed. 6 mm or larger (ground glass)CT at 6-12 months to confirm persistence, then CT every 2 years until 5 years.6 mm or larger (part solid)CT at 3-6 months to confirm persistence, then annual CT until 5 years if unchanged and solid component remains <6 mm. Multiple sub-solid nodules<6 mmCT at 3-6 months, then CT consider at 2 & 4 years for high risk patients. [address] at 3-6 months. Subsequent management based on most suspicious lesions. Recommendations do not apply to lung cancer screening, patients with immunosuppression, or patients with known primary cancer. Dictated by: Bryson Fink M.D. on 02/12/2023 at 11:22 Approved by: Bryson Fink M.D. on 02/12/2023 at 11:26
== END ==
PROVIDERS: PCP Nurse Practitioner; Referring Provider Nurse Practitioner; Visit Provider Nurse Practitioner
DX: R91.8 Other nonspecific abnormal finding of lung field (principal); F34.1 Dysthymic disorder
CPT/HCPCS: 71250; 90853

== ENCOUNTER → 2023-03-20 08:16 | Outpatient (CLI) | payer MEDICARE, OTHER, SELFPAY ==
[2023-03-20 09:15] LABS: Alanine Aminotransferase 19 IU/L (<50); Albumin 4.2 g/dL (3.5-5.0); Albumin Globulin Ratio 1.4 (1.0-2.8); Alkaline Phosphatase 87 U/L (38-126); Aspartate Aminotransferase 26 IU/L (17-59); BUN Creatinine Ratio 10.1 (6-22); Bilirubin Total 0.9 mg/dL (0.2-1.3); Blood Urea Nitrogen 14 mg/dL (9-20); Calcium 9.2 mg/dL (8.4-10.2); Carbon Dioxide 32 mmol/L (22-32); Chloride 100 mmol/L (98-107); Estimated Glomerular Filt Rate 55 mL/min (>60); Glucose 111 mg/dL (80-110); HEMOLYSIS < 15 (0-50); Potassium 4.7 mmol/L (3.4-5.1); Sodium 137 mmol/L (137-145); Total Protein 7.2 g/dL (6.3-8.2)
== END ==
PROVIDERS: PCP Nurse Practitioner; Referring Provider Nurse Practitioner; Visit Provider Nurse Practitioner
DX: I10 Essential (primary) hypertension (principal); N18.9 Chronic kidney disease, unspecified; R73.01 Impaired fasting glucose
CPT/HCPCS: 36415; 80053

== ENCOUNTER → 2023-08-20 09:00 | Outpatient (CLI) | payer MEDICARE, OTHER, SELFPAY ==
[2023-08-20 11:07] LABS: Alanine Aminotransferase 31 IU/L (<50); Albumin 4.2 g/dL (3.5-5.0); Albumin Globulin Ratio 1.3 (1.0-2.8); Alkaline Phosphatase 105 U/L (38-126); Aspartate Aminotransferase 32 IU/L (17-59); BUN Creatinine Ratio 10.8 (6-22); Bilirubin Total 1.1 mg/dL (0.2-1.3); Blood Urea Nitrogen 15 mg/dL (9-20); Calcium 9.3 mg/dL (8.4-10.2); Carbon Dioxide 30 mmol/L (22-32); Chloride 99 mmol/L (98-107); Estimated Glomerular Filt Rate 54 mL/min (>60); Globulin 3.3 g/dL (1.7-4.1); Glucose 99 mg/dL (80-110); HEMOLYSIS < 15 (0-50); Potassium 4.1 mmol/L (3.4-5.1); Sodium 137 mmol/L (137-145); Total Protein 7.5 g/dL (6.3-8.2)
[2023-08-20 11:15] LABS: Hemoglobin A1C% w Est Avg Glu 5.2 % (4.0-6.0)
== END ==
PROVIDERS: PCP Nurse Practitioner; Referring Provider Nurse Practitioner; Visit Provider Nurse Practitioner
DX: F34.1 Dysthymic disorder (principal); R73.01 Impaired fasting glucose
CPT/HCPCS: 36415; 80053; 83036; 90853

== ENCOUNTER → 2023-11-22 14:43 | Outpatient (CLI) | payer MEDICARE, OTHER, SELFPAY ==
[2023-11-22 19:47] LABS: Prostate Specific Antigen 1.21 ng/mL (0.10-4.00)
== END ==
LOC: LAB 14:44
PROVIDERS: PCP Nurse Practitioner; Referring Provider Specialist; Visit Provider Specialist
DX: R39.198 Other difficulties with micturition (principal); N40.1 Benign prostatic hyperplasia with lower urinary tract symptoms; N13.8 Other obstructive and reflux uropathy
CPT/HCPCS: 36415; 84153

== ENCOUNTER → 2023-12-03 10:05 | Outpatient (CLI) | payer MEDICARE, OTHER, SELFPAY | PROVIDERS: PCP Nurse Practitioner; Visit Provider Specialist | DX: N40.1 Benign prostatic hyperplasia with lower urinary tract symptoms (principal); N13.8 Other obstructive and reflux uropathy | CPT/HCPCS: 87086 ==

== ENCOUNTER → 2024-08-29 07:29 | Outpatient (CLI) | payer MEDICARE, OTHER, SELFPAY ==
[2024-08-29 08:13] LABS: Hematocrit 41.8 % (41-53); Hemoglobin 14.7 g/dL (13.5-17.5); Mean Corpuscular HGB Conc 35.1 % (30-36); Mean Corpuscular Hemoglobin 32.5 PG (26-34); Mean Corpuscular Volume 92.7 fL (80-100); Platelet Count 219 X10^3/uL (150-400); Red Blood Cell Count 4.51 X10^6/uL (4.5-5.9); Red Cell Distribution Width 13.2 % (11.6-14.8)
[2024-08-29 08:24] LABS: Hemoglobin A1C% w Est Avg Glu 5.3 % (4.0-6.0)
[2024-08-29 08:41] LABS: Creatinine Urine Random 121.93 mg/dL
[2024-08-29 08:44] LABS: Alanine Aminotransferase 22 IU/L (<50); Albumin 4.2 g/dL (3.5-5.0); Albumin Globulin Ratio 1.7 (1.0-2.8); Alkaline Phosphatase 89 U/L (38-126); Aspartate Aminotransferase 29 IU/L (17-59); BUN Creatinine Ratio 13.1 (6-22); Bilirubin Total 0.9 mg/dL (0.2-1.3); Blood Urea Nitrogen 20 mg/dL (9-20); Calcium 9.3 mg/dL (8.4-10.2); Carbon Dioxide 25 mmol/L (22-32); Chloride 104 mmol/L (98-107); Cholesterol 161 mg/dL (140-199); Estimated Glomerular Filt Rate 48 mL/min (>60); Globulin 2.5 g/dL (1.7-4.1); Glucose 105 mg/dL (80-110); HDL Cholesterol 53 mg/dL (40-60); HEMOLYSIS < 15 (0-50); LDL Cholesterol Calculated 97 mg/dL (<100); Potassium 4.8 mmol/L (3.4-5.1); Sodium 136 mmol/L (137-145); Total Protein 6.7 g/dL (6.3-8.2); Triglycerides 57 mg/dL (35-150)
[2024-08-29 08:45] LABS: Microalbumin Urine Random < 0.6 mg/dL (0-1.6)
[2024-08-29 08:55] LABS: Vitamin D 25 Hydroxy (D3) 15.5 ng/mL (30.0-100.0)
== END ==
PROVIDERS: PCP Family Medicine; Referring Provider Family Medicine; Visit Provider Family Medicine
DX: Z00.00 Encounter for general adult medical examination without abnormal findings (principal); R73.01 Impaired fasting glucose; N18.30 Chronic kidney disease, stage 3 unspecified; I12.9 Hypertensive chronic kidney disease with stage 1 through stage 4 chronic kidney disease, or unspecified chronic kidney disease
CPT/HCPCS: 36415; 80053; 80061; 82043; 82306; 82570; 83036; 85027

== ENCOUNTER → 2024-11-24 08:46 | Outpatient (CLI) | payer MEDICARE, OTHER, SELFPAY ==
[2024-11-24 10:04] LABS: Mean Corpuscular HGB Conc 34.2 % (30-36); Mean Corpuscular Hemoglobin 31.9 PG (26-34); Mean Corpuscular Volume 93.4 fL (80-100); Platelet Count 220 X10^3/uL (150-400); Red Blood Cell Count 4.39 X10^6/uL (4.5-5.9); White Blood Cell Count 3.9 X10^3/uL (4.5-11.0)
[2024-11-24 10:30] LABS: Alanine Aminotransferase 20 IU/L (<50); Albumin 4.2 g/dL (3.5-5.0); Albumin Globulin Ratio 1.6 (1.0-2.8); Alkaline Phosphatase 70 U/L (38-126); Aspartate Aminotransferase 29 IU/L (17-59); BUN Creatinine Ratio 14.2 (6-22); Blood Urea Nitrogen 21 mg/dL (9-20); Calcium 9.4 mg/dL (8.4-10.2); Carbon Dioxide 29 mmol/L (22-32); Chloride 100 mmol/L (98-107); Cholesterol 162 mg/dL (140-199); Estimated Glomerular Filt Rate 50 mL/min (>60); Globulin 2.7 g/dL (1.7-4.1); Glucose 94 mg/dL (80-110); HDL Cholesterol 60 mg/dL (40-60); HEMOLYSIS < 15 (0-50); LDL Cholesterol Calculated 90 mg/dL (<100); Potassium 4.3 mmol/L (3.4-5.1); Sodium 135 mmol/L (137-145); Total Protein 6.9 g/dL (6.3-8.2); Triglycerides 59 mg/dL (35-150)
== END ==
PROVIDERS: Urology; PCP Family Medicine; Referring Provider Student in an Organized Health Care Education/Training Program; Visit Provider Student in an Organized Health Care Education/Training Program
DX: Z00.00 Encounter for general adult medical examination without abnormal findings (principal); N18.30 Chronic kidney disease, stage 3 unspecified; D70.9 Neutropenia, unspecified; D63.1 Anemia in chronic kidney disease; Z12.5 Encounter for screening for malignant neoplasm of prostate; R80.9 Proteinuria, unspecified; I12.9 Hypertensive chronic kidney disease with stage 1 through stage 4 chronic kidney disease, or unspecified chronic kidney disease
CPT/HCPCS: 80053; 80061; 84153; 85027; G0103

== ENCOUNTER → 2025-01-21 08:07 | Outpatient (CLI) | payer MEDICARE, OTHER, SELFPAY ==
--- NOTE | 2025-01-21 15:43 | DI.US.S_ITS ---
PROCEDURE: US RENAL COMPLETE INDICATIONS: STAGE 3A CHRONIC KIDNEY DISEASE TECHNIQUE: Real-time scanning was performed of the kidneys and bladder, with image documentation. COMPARISON: [facility], CT, CT CHEST WO CON, 11/09/2022, 7:02. FINDINGS: Kidneys: Kidneys are normal in size. Right kidney measures 7.5 cm long; left kidney measures 10.5 cm long. Right renal cortical thickness is 1.4 cm; left renal cortical thickness is 1.5 cm. Renal cortical echotexture is increased. No hydronephrosis or nephrolithiasis. Small peripelvic cysts. Cystic area adjacent to the right kidney measuring 4.5 cm. Bladder: Pre-void bladder volume is 611 mL. Post-void residual is 293 mL. Pre-void images demonstrate no intraluminal masses or stones. On pre-void images, both ureteral jets are noted with color Doppler interrogation. (Of note, ureteral jets may not be detectable in up to 25% of cases due to insufficient differences in specific gravity between ureteral and bladder urine). Miscellaneous: No free pelvic fluid. Prostate gland measures 6 x 4.6 x 2.6 cm, volume of 37 cc. Median lobe hypertrophy. IMPRESSION: 1. Right kidney is atrophic. Renal echogenicity is increased. Most likely due to medical renal disease. 2. No hydronephrosis. 3. Small benign peripelvic cysts. Cystic area adjacent to the right kidney measuring 4.5 cm. 4. Postvoid residual 293 cc. Prostatomegaly. Dictated by: Quirino Forrester M.D. on 01/22/2025 at 12:36 Approved by: Quirino Forrester M.D. on 01/22/2025 at 12:45
== END ==
PROVIDERS: PCP Family Medicine; Referring Provider Student in an Organized Health Care Education/Training Program; Visit Provider Student in an Organized Health Care Education/Training Program
DX: N18.31 Chronic kidney disease, stage 3a (principal); N28.1 Cyst of kidney, acquired; N40.0 Benign prostatic hyperplasia without lower urinary tract symptoms
CPT/HCPCS: 76770

== ENCOUNTER → 2025-01-30 14:31 | Outpatient (CLI) | payer MEDICARE, OTHER, SELFPAY ==
[2025-01-30 15:08] LABS: Hematocrit 39.3 % (41-53); Hemoglobin 13.9 g/dL (13.5-17.5)
[2025-01-30 15:29] LABS: BUN Creatinine Ratio 15.7 (6-22); Blood Urea Nitrogen 20 mg/dL (9-20); Calcium 9.4 mg/dL (8.4-10.2); Carbon Dioxide 28 mmol/L (22-32); Chloride 102 mmol/L (98-107); Estimated Glomerular Filt Rate 60 mL/min (>60); Glucose 100 mg/dL (70-99); HEMOLYSIS 21 (0-50); Phosphorous 3.4 mg/dL (2.3-3.7); Potassium 4.2 mmol/L (3.4-5.1); Sodium 137 mmol/L (137-145)
[2025-01-30 15:32] LABS: Creatinine Urine Random 46.05 mg/dL; Protein (Total) Urine Random 9 mg/dL (0-12); Protein Creatinine Ratio Urine 0.19 GRAM/24H
== END ==
PROVIDERS: PCP Family Medicine; Referring Provider Student in an Organized Health Care Education/Training Program; Visit Provider Student in an Organized Health Care Education/Training Program
DX: D70.9 Neutropenia, unspecified (principal); D63.1 Anemia in chronic kidney disease; E83.30 Disorder of phosphorus metabolism, unspecified; N05.9 Unspecified nephritic syndrome with unspecified morphologic changes; N25.81 Secondary hyperparathyroidism of renal origin; R80.9 Proteinuria, unspecified
CPT/HCPCS: 36415; 80048; 82570; 83970; 84100; 84156; 85014; 85018